=== PATIENT | female | born 1980 | race Caucasian/White ===

== ENCOUNTER 2017-03-07 13:53 | Emergency (ER) | payer OTHER ==
[2017-03-07 14:17] VITALS: RESP 18
[2017-03-07 16:23] LABS: BASO # 0.1 K/uL (0.0-0.2); BASO % 1.2 % (0.0-2.0); EOS % 0.5 % (0.0-4.0); HEMATOCRIT 33.9 % (34.0-47.0); LYMPH # 2.1 K/uL (1.0-4.3); LYMPH % 36.5 % (20.0-40.0); MEAN CELL VOLUME 71.3 fL (81.0-99.0); MEAN CORPUSCULAR HGB CONC 30.9 g/dL (33.0-37.0); MONO # 0.6 K/uL (0.0-0.8); MONO % 10.6 % (0.0-10.0); RED CELL DISTRIBUTION WIDTH 18.7 % (11.5-14.5); WHITE BLOOD COUNT 5.8 K/uL (4.8-10.8)
[2017-03-07 16:26] LABS: URINE BILIRUBIN NEGATIVE (NEGATIVE); URINE BLOOD NEGATIVE (NEGATIVE); URINE COLOR Straw (YELLOW); URINE GLUCOSE (UA) NORMAL (Normal); URINE KETONE NEGATIVE (NEGATIVE); URINE LEUKOCYTE ESTERASE NEG Leu/uL (Negative); URINE PROTEIN NEGATIVE (NEGATIVE); URINE UROBILINOGEN NORMAL mg/dL (0.2-1.0)
[2017-03-07 16:32] LABS: CHLORIDE 105 mmol/L (98-107); POTASSIUM 4.1 mmol/L (3.6-5.2); SODIUM 141 mmol/L (132-148)
[2017-03-07 16:34] LABS: AST/SGOT 28 U/L (14-36); BILIRUBIN,TOTAL 0.6 mg/dL (0.2-1.3); CARBON DIOXIDE 23 mmol/L (22-30); GFR AFRICAN-AMERICAN > 60
--- NOTE | 2017-03-07 16:34 | C.PDOC ---
History Of Present Illness 36 y/o female presents to ED with complaints of LLQ abdominal pain since yesterday. Patient states pain is intermittent and feels like "sharp spasms" that stayed for most part of the night. Patient has Hx of similar symptoms 2 years ago and was told by PMD if symptoms returned to notify him. Patient states she is sexually active and takes no contraception. Patient denies fever, chills, n/v/d or any other complaints at this time. LMP 02/20/17 Time Seen by Provider: 03/07/17 15:39 Chief Complaint (Nursing): Abdominal Pain History Per: Patient History/Exam Limitations: no limitations Onset/Duration Of Symptoms: Days Current Symptoms Are (Timing): Still Present Past Medical History Reviewed: Historical Data, Nursing Documentation, Vital Signs Vital Signs: Last Vital Signs Temp 99 F 03/07/17 14:17 Pulse 87 03/07/17 14:17 Resp 18 03/07/17 14:17 BP 111/60 03/07/17 14:17 Pulse Ox 100 03/07/17 19:10 - Medical History PMH: Anemia (with transfusions), Mitral Valve Prolapse (4 YEARS AGO) Surgical History: No Surg Hx - [facility] Procedures PACKED CELL TRANSFUSION (07/28/13) Family History: States: No Known Family Hx - Social History Hx Tobacco Use: No Hx Alcohol Use: No Hx Substance Use: No - Immunization History Hx Tetanus Toxoid Vaccination: No Hx Influenza Vaccination: No Hx Pneumococcal Vaccination: No Review Of Systems Constitutional: Negative for: Fever, Chills Gastrointestinal: Positive for: Abdominal Pain. Negative for: Nausea, Vomiting , Diarrhea Genitourinary: Negative for: Dysuria, Frequency Musculoskeletal: Negative for: Back Pain Skin: Negative for: Rash Physical Exam - Physical Exam Appears: Non-toxic, No Acute Distress Skin: Normal Color, Warm, Dry, No Rash Head: Atraumatic, Normacephalic Eye(s): bilateral: Normal Inspection Oral Mucosa: Moist Neck: Normal ROM, Supple Chest: Symmetrical Cardiovascular: Rhythm Regular, No Murmur Respiratory: Normal Breath Sounds, No Rales, No Rhonchi, No Wheezing Gastrointestinal/Abdominal: Tenderness (Mild to left deep pubic area), No Guarding, No Rebound Extremity: Normal ROM, Capillary Refill (<2 seconds) Neurological/Psych: Oriented x3 ED Course And Treatment - Laboratory Results Result Diagrams: 03/07/17 16:18 03/07/17 16:18 Lab Interpretation: No Acute Changes O2 Sat by Pulse Oximetry: 100 (RA) Pulse Ox Interpretation: Normal - CT Scan/US Pelvis Transvaginal Other Rad Studies (CT/US): Interpreted By Me, Read By Radiologist CT/US Interpretation: This report is currently processing and HAS NOT BEEN OFFICIALLY SIGNED BY THE PHYSICIAN - ESTIMATED TIME OF APPROVAL IS 03/07/2017 19 :13. HISTORY: abd pain. COMPARISON: Comparison is made to the previous study dated 08/13/2013. TECHNIQUE: Transabdominal and endovaginal ultrasound examination of the pelvis was obtained. FINDINGS: UTERUS: Measures 10.1 x 4.7 x 5.4 cm. The uterus is anteverted normal in size and appearance. No fibroid or other mass lesion seen. ENDOMETRIUM: Measures 14 point C mm in diameter. Unremarkable. CERVIX: No cervical abnormality identified. RIGHT OVARY: Measures 3.1 x 1.9 x 3.2 cm. No solid mass. Normal flow. Small complex cyst seen at the right ovary measures 1.5 x 1.3 x 1.4 centimeter. LEFT OVARY: Measures 3 x 2.2 x 2.5 cm. No solid mass. Normal flow. FREE FLUID: No significant free fluid noted. OTHER FINDINGS: None. IMPRESSION: Small 1.4 centimeter complex cyst at the right ovary may represent follicle or small hemorrhagic cyst. Otherwise unremarkable study. Reevaluation Time: 19:33 Reassessment Condition: Improved Disposition Counseled Patient/Family Regarding: Studies Performed, Diagnosis, Need For Followup, Rx Given - Disposition Disposition: HOME/ ROUTINE Disposition Time: 19:33 Condition: STABLE Prescriptions: Naproxen [Naprosyn] 1 tab PO BID PRN #25 tab PRN Reason: Pain Instructions: Pelvic Pain in Women (ED), Ovarian Cyst (ED) Forms: [employer] (Filipino) - Clinical Impression Clinical Impression: Pelvic pain - Scribe Statement The provider has reviewed the documentation as recorded by the Riotibbhavik Meza All medical record entries made by the Scribe were at my direction and personally dictated by me. I have reviewed the chart and agree that the record accurately reflects my personal performance of the history, physical exam, medical decision making, and the department course for this patient. I have also personally directed, reviewed, and agree with the discharge instructions and disposition.
[2017-03-07 16:35] LABS: ALB/GLOB RATIO 1.3 (1.0-2.1); ALKALINE PHOSPHATASE 60 U/L (38-126); ALT/SGPT 29 U/L (9-52); BLOOD UREA NITROGEN 4 mg/dL (7-17); CALCIUM 9.3 mg/dl (8.6-10.4); GLUCOSE,RANDOM 75 mg/dL (65-105); TOTAL PROTEIN 8.5 g/dL (6.3-8.3)
--- NOTE | 2017-03-07 19:09 | US ---
HISTORY: abd pain COMPARISON: Comparison is made to the previous study dated 08/13/2013 TECHNIQUE: Transabdominal and endovaginal ultrasound examination of the pelvis was obtained. FINDINGS: UTERUS: Measures 10.1 x 4.7 x 5.4 cm. The uterus is anteverted normal in size and appearance. No fibroid or other mass lesion seen. ENDOMETRIUM: Measures 14 point C mm in diameter. Unremarkable. CERVIX: No cervical abnormality identified. RIGHT OVARY: Measures 3.1 x 1.9 x 3.2 cm. No solid mass. Normal flow. Small complex cyst seen at the right ovary measures 1.5 x 1.3 x 1.4 centimeter. LEFT OVARY: Measures 3 x 2.2 x 2.5 cm. No solid mass. Normal flow. FREE FLUID: No significant free fluid noted. OTHER FINDINGS: None. IMPRESSION: Small 1.4 centimeter complex cyst at the right ovary may represent follicle or small hemorrhagic cyst. Otherwise unremarkable study.
[2017-03-07 19:42] VITALS: BP 121/74; PULSE 67; TEMP 98.7; O2SAT 98
== END 2017-03-07 19:41 | disposition home or self-care (01) ==
LOC: C.ER 13:53
DX: R10.2 Pelvic and perineal pain (principal)

== ENCOUNTER 2017-03-30 18:17 | Emergency (ER) | payer OTHER ==
[2017-03-30 18:29] VITALS: BP 111/74; PULSE 63; RESP 16; TEMP 97.9; O2SAT 100
--- NOTE | 2017-03-30 19:28 | C.PDOC ---
History Of Present Illness Patient is a 36 year old female, who presents to the emergency department complaining of pain to the right 3rd finger s/p injury onset 2 days ago. Patient reports closed it in her car door accidentally and now finger is black and blue. Patient denies any numbness, weakness, fever or chills. PMD: Shaik Daniel Time Seen by Provider: 03/30/17 19:09 Chief Complaint (Nursing): Finger,Hand,&Wrist History Per: Patient History/Exam Limitations: no limitations Onset/Duration Of Symptoms: Days (x2) Current Symptoms Are (Timing): Still Present Quality: Sharp, "Pain" Severity: Mild Past Medical History Reviewed: Historical Data, Nursing Documentation, Vital Signs Vital Signs: Last Vital Signs Temp 97.9 F 03/30/17 18:26 Pulse 63 03/30/17 18:26 Resp 16 03/30/17 18:26 BP 111/74 03/30/17 18:26 Pulse Ox 100 04/04/17 18:02 - Medical History PMH: Anemia (with transfusions), Mitral Valve Prolapse (4 YEARS AGO) - [facility] Procedures PACKED CELL TRANSFUSION (07/28/13) Family History: States: Unknown Family Hx - Social History Hx Tobacco Use: No Hx Alcohol Use: No Hx Substance Use: No - Immunization History Hx Tetanus Toxoid Vaccination: No Hx Influenza Vaccination: No Hx Pneumococcal Vaccination: No Review Of Systems Except As Marked, All Systems Reviewed And Found Negative. Constitutional: Negative for: Fever, Chills Musculoskeletal: Positive for: Hand Pain (subungual hematoma on right 3rd digit) Physical Exam - Physical Exam Appears: Well, No Acute Distress Skin: Normal Color, Warm, Dry, No Rash Head: Atraumatic, Normacephalic Eye(s): bilateral: Normal Inspection Oral Mucosa: Moist Extremity: Normal ROM (FROM), No Pedal Edema, No Deformity, No Swelling, Other ( 100% subungual hematoma on right 3rd digit) Pulses: Left Radial: Normal, Right Radial: Normal Neurological/Psych: Normal Speech, Normal Motor, Normal Sensation ED Course And Treatment O2 Sat by Pulse Oximetry: 100 (RA) Pulse Ox Interpretation: Normal Medical Decision Making Medical Decision Making: Finger xray is negative for fracture. Patient reports improvement of symptoms after procedure. Disposition - Disposition Referrals: Shaik Daniel MD [Staff Provider] - Disposition: HOME/ ROUTINE Disposition Time: 19:27 Condition: GOOD Additional Instructions: Wash twice a day with soap and water. Follow up with the medical doctor/clinic within 1-2 days. Return if worsened. Instructions: Subungual Hematoma (ED) Forms: [facility] (Slovenian) - Clinical Impression Clinical Impression: Subungual hematoma, Finger injury - Scribe Statement The provider has reviewed the documentation as recorded by the Scribbhavik Dejesus All medical record entries made by the Ritoibbhavik were at my direction and personally dictated by me. I have reviewed the chart and agree that the record accurately reflects my personal performance of the history, physical exam, medical decision making, and the department course for this patient. I have also personally directed, reviewed, and agree with the discharge instructions and disposition. Procedures - Nail Trephination Consent Obtained: Verbal Consent Time Out: Yes (1919) Location (Finger): Right Location (Toes): Thrid Digit Sterile Prep: Betadine Method of Drainage: Nail Cautery Procdure Successful: Yes Patient Tolerated Procedure: Well
--- NOTE | 2017-03-30 19:32 | C.PDOC ---
Time Seen by Provider: 03/30/17 19:09 Chief Complaint (Nursing): Finger,Hand,&Wrist History Per: Patient History/Exam Limitations: no limitations Onset/Duration Of Symptoms: Days (X2) Current Symptoms Are (Timing): Still Present Past Medical History Reviewed: Historical Data, Nursing Documentation, Vital Signs Vital Signs: Last Vital Signs Temp 97.9 F 03/30/17 18:26 Pulse 63 03/30/17 18:26 Resp 16 03/30/17 18:26 BP 111/74 03/30/17 18:26 Pulse Ox 100 03/30/17 19:35 - Medical History PMH: Anemia (with transfusions), Mitral Valve Prolapse (4 YEARS AGO) - [facility] Procedures PACKED CELL TRANSFUSION (07/28/13) Family History: States: Unknown Family Hx - Social History Hx Tobacco Use: No Hx Alcohol Use: No Hx Substance Use: No - Immunization History Hx Tetanus Toxoid Vaccination: No Hx Influenza Vaccination: No Hx Pneumococcal Vaccination: No Review Of Systems Except As Marked, All Systems Reviewed And Found Negative. Constitutional: Negative for: Fever, Chills Musculoskeletal: Positive for: Hand Pain (subungual hematoma on right 3rd digit) Physical Exam - Physical Exam Appears: Well, No Acute Distress Skin: Normal Color, Warm, Dry Eye(s): bilateral: Normal Inspection Neck: Normal, Normal ROM, Supple Respiratory: Normal Breath Sounds Extremity: Normal ROM, No Pedal Edema, No Deformity, Other (Subungual hematoma on right 3rd digit) Neurological/Psych: Normal Speech, Normal Motor, Normal Sensation ED Course And Treatment O2 Sat by Pulse Oximetry: 100 (RA) Pulse Ox Interpretation: Normal Disposition - Disposition Referrals: Shaik Daniel MD [Staff Provider] - Disposition: HOME/ ROUTINE Additional Instructions: Wash twice a day with soap and water. Follow up with the medical doctor/clinic within 1-2 days. Return if worsened. Instructions: Subungual Hematoma (ED) Forms: [employer] (Persian) - Clinical Impression Clinical Impression: Subungual hematoma - Scribe Statement The provider has reviewed the documentation as recorded by the Scribe Emile Dejesus All medical record entries made by the Scribe were at my direction and personally dictated by me. I have reviewed the chart and agree that the record accurately reflects my personal performance of the history, physical exam, medical decision making, and the department course for this patient. I have also personally directed, reviewed, and agree with the discharge instructions and disposition.
--- NOTE | 2017-03-31 09:27 | RAD ---
PROCEDURE: Right middle finger radiographs. HISTORY: r/o fracture COMPARISON: None. TECHNIQUE: AP radiograph of the right hand, as well as spot oblique and lateral images of right middle finger were obtained. FINDINGS: RIGHT MIDDLE FINGER: Right middle finger normal, without fracture of focal lesion. Remainder of the right hand (as seen on the AP view) grossly unremarkable. JOINTS: Normal. SOFT TISSUES: Normal. OTHER FINDINGS: None. IMPRESSION: No evidence of acute fracture or dislocation.
== END 2017-03-30 19:41 | disposition home or self-care (01) ==
LOC: C.ER 18:17
DX: S60.031A Contusion of right middle finger without damage to nail, initial encounter (principal); W22.8XXA Striking against or struck by other objects, initial encounter

== ENCOUNTER 2018-02-05 20:55 | Emergency (ER) | payer MEDICAID, OTHER ==
[2018-02-05 21:02] VITALS: BP 120/72; PULSE 68; RESP 20; TEMP 98.8; O2SAT 100
[2018-02-05] MEDS ORDERED: Morphine 4 MG/ML VIAL ONE (21:47)
--- NOTE | 2018-02-05 21:47 | C.PDOC ---
History Of Present Illness 37 y/o female presents to the ED complaining of severe pain in the left jaw, worsened tonight. States she was already seen by her dentist already and given 800mg Motrin and a course of Augmentin. Patient was advised she needs a root canal, but the specialist is on vacation so she does not have an appointment for the procedure yet. Otherwise she denies any fever, chills, or discharge from the area. Time Seen by Provider: 02/05/18 21:05 Chief Complaint (Nursing): Dental Pain History Per: Patient History/Exam Limitations: no limitations Onset/Duration Of Symptoms: Days Current Symptoms Are (Timing): Still Present Past Medical History Reviewed: Historical Data, Nursing Documentation, Vital Signs Vital Signs: Last Vital Signs Temp 98.8 F 02/05/18 20:58 Pulse 68 02/05/18 20:58 Resp 20 02/05/18 20:58 BP 120/72 02/05/18 20:58 Pulse Ox 100 02/05/18 21:52 - Medical History PMH: Anemia (with transfusions), Mitral Valve Prolapse (4 YEARS AGO) - [facility] Procedures PACKED CELL TRANSFUSION (07/28/13) Family History: States: Unknown Family Hx - Social History Hx Tobacco Use: No Hx Alcohol Use: No Hx Substance Use: No - Immunization History Hx Tetanus Toxoid Vaccination: No Hx Influenza Vaccination: No Hx Pneumococcal Vaccination: No Review Of Systems Except As Marked, All Systems Reviewed And Found Negative. Constitutional: Negative for: Fever, Chills ENT: Positive for: Other (left lower jaw/dental pain) Physical Exam - Physical Exam Appears: Non-toxic, In Acute Distress (in moderate painful distress) Skin: Normal Color, Warm, Dry Head: Atraumatic, Normacephalic Eye(s): bilateral: Normal Inspection Oral Mucosa: Moist Teeth: Normal Dentition, No Loose, Other (Left lower molar is capped, no tenderness) Gingiva: Normal Appearing, No Swelling, No Abscess Neck: Normal ROM, Supple Chest: Symmetrical Neurological/Psych: Oriented x3, Normal Speech, Normal Cranial Nerves Gait: Steady ED Course And Treatment O2 Sat by Pulse Oximetry: 100 (RA) Pulse Ox Interpretation: Normal Progress Note: Patient treated with IM morphine for pain control. Advised to continue antibiotics at home and follow up with specialist as soon as possible for further treatment. Disposition - Disposition Referrals: [facility] [Outside] Disposition: HOME/ ROUTINE Disposition Time: 22:34 Condition: STABLE Additional Instructions: Follow up with Dentist GENA. Return to ED if feel worse. Prescriptions: traMADol [Ultram] 50 mg PO Q6 #30 tab Instructions: Dental Pain (DC) Forms: [employer] ([place]), [facility] - Clinical Impression Clinical Impression: Pain, dental - PA / [employer] / Resident Statement MD/DO has reviewed & agrees with the documentation as recorded. - Scribe Statement The provider has reviewed the documentation as recorded by the Scribe (Nina Vaz) All medical record entries made by the Scribe were at my direction and personally dictated by me. I have reviewed the chart and agree that the record accurately reflects my personal performance of the history, physical exam, medical decision making, and the department course for this patient. I have also personally directed, reviewed, and agree with the discharge instructions and disposition.
== END 2018-02-05 23:20 | disposition home or self-care (01) ==
LOC: C.ER 20:55
DX: K08.89 Other specified disorders of teeth and supporting structures (principal)
CPT/HCPCS: 96372; 99283; J2270